=== PATIENT | female | born 1970 | race Caucasian/White ===

== ENCOUNTER 2019-01-31 01:03 | Emergency (ER) | payer OTHER ==
[~2019-01-31] VITALS: Ht 180.3 cm; Wt 61.2 kg
--- NOTE | 2019-01-31 01:15 | NUR ---
PT RECEIVED AMBULATORY WITH STABLE GAIT, +GUARDING PAIN IN LEFT SHOULDER [id number] +HX OF SHOULDER INJURY AND WENT TO THE [facility] [place] [facility] TO SPEAK CLEAR AND COMPLETE SENTENCES DENIES FEVERS/CHILLS/HEADACHE, DENIES NVD
--- NOTE | 2019-01-31 01:33 | NUR ---
ERMD AT BEDSIDE FOR HX AND PHYSICAL SIDERAILSX2 UP, BED AT LOWEST POSITION
[2019-01-31] MEDS ORDERED: DEXAMETHASONE SOD PHOSPHATE 4 MG INJ IM ONE (01:45)
[2019-01-31] MEDS ORDERED: MORPHINE SULFATE 4 MG/1 ML DISP.SYRIN IM ONE (01:45)
[2019-01-31] MEDS ORDERED: MORPHINE SULFATE 4 MG/1 ML DISP.SYRIN ONE (01:48)
[2019-01-31] MEDS ORDERED: DEXAMETHASONE SOD PHOSPHATE 10 MG INJ ONE (01:48)
[2019-01-31 01:53] LABS: BASOPHILS # (AUTO) 0.1 K/uL (0.0-8.0); BASOPHILS % (AUTO) 1.3 % (0.0-2.0); EOSINOPHILS # (AUTO) 0.1 K/uL (0.0-0.7); EOSINOPHILS % (AUTO) 2.6 % (0.0-7.0); HEMATOCRIT 42.7 % (31.2-41.9); HEMOGLOBIN 15.1 g/dL (10.9-14.3); LYMPHOCYTES # (AUTO) 1.7 K/uL (20.0-40.0); LYMPHOCYTES % (AUTO) 33.7 % (20.5-51.5); MEAN CORPUSCULAR HEMOGLOBIN 32.7 uug (24.7-32.8); MEAN CORPUSCULAR HGB CONC 35 g/dL (32.3-35.6); MEAN CORPUSCULAR VOLUME 92.6 fL (75.5-95.3); MONOCYTES # (AUTO) 0.3 K/uL (2.0-10.0); MONOCYTES % (AUTO) 6.8 % (0.0-11.0); NEUTROPHILS # (AUTO) 2.8 K/uL (1.8-8.9); NEUTROPHILS % (AUTO) 55.6 % (38.5-71.5); PLATELET COUNT (AUTO) 277 K/uL (179-408); RED BLOOD CELL COUNT(AUTO) 4.62 MIL/uL (3.63-4.92)
[2019-01-31 01:57] LABS: CREATININE 0.8 mg/dL (0.6-1.3); POTASSIUM 3.8 mmol/L (3.5-5.1)
[2019-01-31] MEDS ORDERED: HYDROMORPHONE 1 MG/1 ML DISP.SYRIN ONE (02:26)
[2019-01-31] MEDS ORDERED: HYDROMORPHONE 1 MG/1 ML DISP.SYRIN IM ONE (02:30)
--- NOTE | 2019-01-31 05:00 | NUR ---
Patient discharged to home in stable conditon. Written and verbal after care instructions given. Patient verbalizes understanding of instructions. AMBULATORY WITH STABLE GAIT. ALL BELONGINGS WITH PT.
[2019-01-31 05:01] VITALS: BP 91/55
== END 2019-01-31 05:02 | disposition home or self-care (01) ==
LOC: ER 01:15
DX: M25.512 Pain in left shoulder (principal)
CPT/HCPCS: 36415; 73030; 80048; 82550; 85025; 93005; 93971; 96372 ×3; 99284; J1100; J1170; J2270; A4663

== ENCOUNTER 2020-02-03 12:42 | Emergency (ER) | payer OTHER ==
[~2020-02-03] VITALS: Ht 180.3 cm; Wt 61.2 kg
--- NOTE | 2020-02-03 12:50 | NUR ---
chapperoned md with examination of the breasts.
--- NOTE | 2020-02-03 13:02 | NUR ---
Patient discharged to home in stable condition. Written and verbal after care instructions given. Patient verbalizes understanding of instructions. Stressed follow up or return to ER for worsening s/s.
== END 2020-02-03 13:05 | disposition home or self-care (01) ==
LOC: ER 12:42
DX: N64.4 Mastodynia (principal); Z98.82 Breast implant status; Z85.828 Personal history of other malignant neoplasm of skin
CPT/HCPCS: A4663

== ENCOUNTER 2021-10-09 16:57 | Emergency (ER) | payer OTHER ==
[~2021-10-09] VITALS: Ht 180.3 cm; Wt 68.0 kg
--- NOTE | 2021-10-09 17:34 | NUR ---
Dr Reynaga at the bedside for MSE.
[2021-10-09] MEDS ORDERED: KETOROLAC TROMETHAMINE 30 MG INJ IM ONE (17:45)
[2021-10-09] MEDS ORDERED: KETOROLAC TROMETHAMINE 30 MG INJ ONE (17:47)
[2021-10-09] MEDS ORDERED: HYDR-4209 PO (18:27)
[2021-10-09 18:41] VITALS: BP 102/60
== END 2021-10-09 18:45 | disposition home or self-care (01) ==
LOC: ER 17:00
DX: M25.511 Pain in right shoulder (principal); S49.91XA Unspecified injury of right shoulder and upper arm, initial encounter; W19.XXXA Unspecified fall, initial encounter; Y92.89 Other specified places as the place of occurrence of the external cause; M79.674 Pain in right toe(s); Z98.82 Breast implant status; Z85.828 Personal history of other malignant neoplasm of skin
CPT/HCPCS: 73030; 73660; 96372; 99284; J1885; A4663